=== PATIENT | male | born 1985 | race Hispanic/Latino ===

== ENCOUNTER 2019-06-03 14:54 | Emergency (ER) | payer OTHER ==
[2019-06-03] MEDS ORDERED: Take Home: Doxycycline 100 MG Tab, 4 Tab Pack PO ONE (16:04)
--- NOTE | 2019-06-03 16:21 | CR ---
[id number] RAD/RAD Chest PA And Lateral EXAM: RAD Chest PA And Lateral INDICATION: COUGH, CONGESTION. COMPARISON: None. DISCUSSION: PA lateral view demonstrates parenchymal opacification anteriorly abutting the diaphragm. This is not definitely seen on the PA view. Linear parenchymal opacification projecting over the left lung base does not correlate with findings on lateral view. Despite this, correlation signs for signs of infection as this could represent a right middle lobe or lingular pneumonia. Lungs are otherwise clear. Heart is normal in size. IMPRESSION: Parenchymal opacification on lateral view possibly represent either a lingular or right middle lobe pneumonia/atelectasis. Monty Spangler MD 06/03/19 2234 Thank you for allowing us to participate in the care of your patient.
--- NOTE | 2019-06-04 00:34 | EDM.PDOC ---
ED HPI GENERAL MEDICAL PROBLEM - General Chief Complaint: Respiratory Problem Stated Complaint: COUGH Time Seen by Provider: 06/03/19 15:00 Source of Information: Reports: Patient History Limitations: Reports: No Limitations - History of Present Illness INITIAL COMMENTS - FREE TEXT/NARRATIVE: Pt. presents to ER with complaints of cough and low grade fever that started today. He states that he is mildly short of breath. He states that his has been ill recently as well. 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 Denies any travel outside of the country. Denies any nausea, vomiting, or diarrhea. No chest pain. No jaw, arm or neck pain. He states that his cough is productive occasionally of yellowish sputum. Onset Date: 06/03/19 Location: Reports: Chest, Generalized Severity: Moderate Associated Symptoms: Reports: Cough, cough w sputum, Fever/Chills, Shortness of Breath. Denies: Confusion, Chest Pain, Diaphoresis, Headaches, Loss of Appetite , Malaise, Nausea/Vomiting, Rash, Seizure, Syncope, Weakness - Related Data Allergies Allergy/AdvReac Type Severity Reaction Status Date / Time No Known Allergies Allergy Verified 06/03/19 15:27 Home Meds: Home Meds ARIPiprazole [Aripiprazole] 5 mg PO DAILY 06/03/19 [History] OXcarbazepine [Trileptal] 600 mg PO BID 06/03/19 [History] Omeprazole Magnesium [Prilosec Otc] 20 mg PO DAILY 06/03/19 [History] guanFACINE HCl [Guanfacine HCl ER] 2 mg PO DAILY 06/03/19 [History] Past Medical History - Past Health History Medical/Surgical History: Denies Medical/Surgical History Psychiatric History: Reports: Bipolar Social & Family History - Tobacco Use Smoking Status *Q: Never Smoker ED ROS GENERAL - Review of Systems Review Of Systems: See Below Constitutional: Reports: No Symptoms HEENT: Reports: No Symptoms Respiratory: Reports: Shortness of Breath, Cough, Sputum Cardiovascular: Reports: No Symptoms Endocrine: Reports: No Symptoms GI/Abdominal: Reports: No Symptoms : Reports: No Symptoms Musculoskeletal: Reports: No Symptoms Skin: Reports: No Symptoms Neurological: Reports: No Symptoms Psychiatric: Reports: No Symptoms Hematologic/Lymphatic: Reports: No Symptoms Immunologic: Reports: No Symptoms ED EXAM, GENERAL - Physical Exam Exam: See Below Exam Limited By: No Limitations General Appearance: Alert, WD/WN, No Apparent Distress Eye Exam: Bilateral Eye: EOMI, Normal Fundi, Normal Inspection, PERRL Ears: Normal External Exam, Normal Canal, Hearing Grossly Normal, Normal TMs Ear Exam: Bilateral Ear: Auricle Normal, Canal Normal, TM normal Nose: Normal Inspection, Normal Mucosa, No Blood Throat/Mouth: Normal Inspection, Normal Lips, Normal Teeth, Normal Oropharynx, Normal Voice, No Airway Compromise Head: Atraumatic, Normocephalic Neck: Normal Inspection, Supple, Non-Tender Respiratory/Chest: No Respiratory Distress, Decreased Breath Sounds (R lower lung field) Cardiovascular: Normal Peripheral Pulses, Regular Rate, Rhythm, No JVD, No Rub Peripheral Pulses: 4+: Radial (L) GI/Abdominal: Normal Bowel Sounds, Soft, Non-Tender, No Distention, No Mass (Male) Exam: Deferred Rectal (Males) Exam: Deferred Back Exam: Normal Inspection, Full Range of Motion Extremities: Normal Inspection, Normal Range of Motion, Non-Tender, No Pedal Edema, Normal Capillary Refill Neurological: Alert, Oriented, CN II-XII Intact, Normal Reflexes, No Motor/ Sensory Deficits Course - Vital Signs Last Recorded V/S: Last Vital Signs Temp 35.7 C L 06/03/19 14:55 Pulse 100 06/03/19 14:55 Resp 16 06/03/19 14:55 BP 149/99 H 06/03/19 14:55 Pulse Ox 97 06/03/19 14:55 - Orders/Labs/Meds Orders: Active Orders 24 hr Category Date Time Status CULTURE STREP A CONFIRMATION [] Stat Lab 06/03/19 15:20 Results STREP SCRN A RAPID W CULT CONF [] Stat Lab 06/03/19 15:20 Results Meds: Medications Discontinued Medications Generic Name Dose Route Start Last Admin Trade Name Freq PRN Reason Stop Dose Admin Doxycycline Monohydrate 1 packet 06/03/19 16:04 06/03/19 16:13 Take Home: Doxycycline 100 Mg, 4 Tab Pack PO 06/03/19 16:05 1 packet ONETIME ONE Administration - Radiology Interpretation Free Text/Narrative:: R middle lobe infiltrate noted on CXR Departure - Departure Time of Disposition: 16:15 Disposition: Home, Self-Care 01 Clinical Impression: CAP (community acquired pneumonia) - Discharge Information Instructions: Community-Acquired Pneumonia, Adult, [id number] Referrals: Lenka Squires ASSISTANT SPEECH LANGUAGE PATHOLOGIST [Primary Care Provider] - Forms: ED Department Discharge Additional Instructions: Doxycycline 100mg 1 twice daily for 7 days Tylenol and ibuprofen for fever/discomfort Drink plenty of fluids Return to ER if trouble breathing. Off work until you are asymptomatic/24 hours after last fever. Sepsis Event Note - Evaluation Sepsis Screening Result: No Definite Risk - Focused Exam Vital Signs: Vital Signs Temp Pulse Resp BP Pulse Ox 06/03/19 14:55 35.7 C L 100 16 149/99 H 97 Date Exam was Performed: 06/04/19 Time Exam was Performed: 00:53 - My Orders Last 24 Hours: My Active Orders 06/03/19 15:20 CULTURE STREP A CONFIRMATION [RM] Stat STREP SCRN A RAPID W CULT CONF [] Stat - Assessment/Plan Last 24 Hours: My Active Orders 06/03/19 15:20 CULTURE STREP A CONFIRMATION [RM] Stat STREP SCRN A RAPID W CULT CONF [] Stat Plan: Doxycycline 100mg 1 twice daily for 7 days Tylenol and ibuprofen for fever/discomfort Drink plenty of fluids Return to ER if trouble breathing. Off work until you are asymptomatic/24 hours after last fever.
== END 2019-06-03 16:15 | disposition home or self-care (01) ==
LOC: VM.ED 14:54
DX: J18.9 Pneumonia, unspecified organism (principal); F31.9 Bipolar disorder, unspecified; Z79.899 Other long term (current) drug therapy
CPT/HCPCS: 71046; 87081; 87804; 87804-59; 87880-QW; 99283-25; A9270-GY

== ENCOUNTER 2020-10-26 19:13 | Emergency (ER) | payer OTHER ==
[2020-10-26] MEDS ORDERED: Sodium Chloride 0.9% 10 ML Syringe FLUSH PRN (19:30)
[2020-10-26] MEDS ORDERED: cefTRIAXone 1 GM Vial IVPUSH ONE (19:33)
--- NOTE | 2020-10-26 19:40 | EDM.PDOC ---
ED HPI GENERAL MEDICAL PROBLEM - General Chief Complaint: Respiratory Problem Stated Complaint: CHEST PAIN AND SOB Time Seen by Provider: 10/26/20 19:15 Source of Information: Reports: Patient History Limitations: Reports: No Limitations - History of Present Illness INITIAL COMMENTS - FREE TEXT/NARRATIVE: Patient comes in the emergency department with concerns of worsening respiratory illness. Patient states that he was in the clinic earlier this week and was started on a Z-Srini for an ear infection and chest congestion. He states over the last 48 to 72 hours he has increase in body aches, fevers, generalized fatigue, increased coughing, and short this of breath with activity. He also states that he gets chest discomfort when he is coughing. He states that is getting worse the more he coughs. He also had a Covid test completed on which was negative however he states that his symptoms had just started that day. Patient states he can think denies of any chest pain at rest, nausea, vomiting, blurred vision, gastrointestinal issues, or peripheral edema. Onset: Gradual Quality: Reports: Other Severity: Moderate Improves with: Reports: Other Worsens with: Reports: Other (coughing ), Movement Associated Symptoms: Reports: No Other Symptoms Chest Pain Score (Numeric/FACES): 8 - Related Data Allergies Allergy/AdvReac Type Severity Reaction Status Date / Time No Known Allergies Allergy Verified 06/03/19 15:27 Home Meds: Home Meds ARIPiprazole [Aripiprazole] 5 mg PO DAILY 06/03/19 [History] OXcarbazepine [Trileptal] 600 mg PO BID 06/03/19 [History] Omeprazole Magnesium [Prilosec Otc] 20 mg PO DAILY 06/03/19 [History] guanFACINE HCl [Guanfacine HCl ER] 2 mg PO DAILY 06/03/19 [History] Past Medical History - Past Health History Medical/Surgical History: Denies Medical/Surgical History Psychiatric History: Reports: Bipolar ED ROS GENERAL - Review of Systems Review Of Systems: Comprehensive ROS is negative, except as noted in HPI. Constitutional: Reports: Fever, Chills, Malaise, Fatigue, Decreased Appetite HEENT: Reports: No Symptoms Respiratory: Reports: Shortness of Breath, Pleuritic Chest Pain, Cough, Sputum Cardiovascular: Reports: No Symptoms Endocrine: Reports: No Symptoms GI/Abdominal: Reports: No Symptoms : Reports: No Symptoms Musculoskeletal: Reports: No Symptoms Skin: Reports: No Symptoms Neurological: Reports: No Symptoms Psychiatric: Reports: No Symptoms Hematologic/Lymphatic: Reports: No Symptoms Immunologic: Reports: No Symptoms ED EXAM, GENERAL - Physical Exam Exam: See Below Exam Limited By: No Limitations General Appearance: Alert, WD/WN, No Apparent Distress Head: Atraumatic, Normocephalic Neck: Normal Inspection, Supple, Non-Tender Respiratory/Chest: Decreased Breath Sounds Cardiovascular: Normal Peripheral Pulses, Regular Rate, Rhythm, No Edema, Tach ycardia Back Exam: Normal Inspection, Full Range of Motion Extremities: Normal Inspection, Normal Range of Motion, Non-Tender, Normal Capillary Refill Neurological: Alert, Oriented, Normal Cognition, Normal Gait Psychiatric: Normal Affect, Normal Mood Skin Exam: Warm, Dry, Intact, Normal Color Course - Vital Signs Last Recorded V/S: Last Vital Signs Temp 37.7 C 10/26/20 19:20 Pulse 118 H 10/26/20 19:20 Resp 22 H 10/26/20 19:20 BP 150/84 H 10/26/20 19:20 Pulse Ox 93 L 10/26/20 19:20 - Orders/Labs/Meds Orders: Active Orders 24 hr Category Date Time Status EKG Documentation Completion [RC] STAT Care 10/26/20 19:30 Active CULTURE BLOOD [BC] Stat Lab 10/26/20 19:43 Received CULTURE BLOOD [BC] Stat Lab 10/26/20 20:02 Received Sodium Chloride 0.9% [Saline Flush] Med 10/26/20 19:30 Active 10 ml FLUSH ASDIRECTED PRN Blood Culture x2 Reflex Set [OM.PC] Stat Oth 10/26/20 19:38 Ordered Peripheral IV Insertion Adult [OM.PC] Stat Oth 10/26/20 19:30 Ordered Medication Orders Sodium Chloride (Sodium Chloride 0.9% 10 Ml Syringe) 10 ml FLUSH ASDIRECTED PRN PRN Reason: Keep Vein Open Labs: Laboratory Tests 10/26/20 10/26/20 10/26/20 Range/Units 19:43 19:43 19:43 WBC 9.7 (4.0-10.0) x10^3/uL RBC 4.93 (4.5-6.0) x10^6/uL Hgb 16.3 (14.0-18.0) g/dL Hct 45.4 (40.0-52.0) % MCV 92.1 (78.0-93.0) fL MCH 33.1 H (26.0-32.0) pg MCHC 35.9 (32.0-36.0) g/dL RDW Coeff of [place] 12.2 (10.0-15.0) % Plt Count 213 (130-400) x10^3/uL Neut % (Auto) 81.7 H (50.0-80.0) % Lymph % (Auto) 8.2 L (25.0-50.0) % [place] % (Auto) 9.5 (2.0-11.0) % Eos % (Auto) 0.4 (0.0-4.0) % Baso % (Auto) 0.2 (0.2-1.2) % Sodium 137 (136-145) mmol/L Potassium 3.4 L (3.5-5.1) mmol/L Chloride 101 (98-107) mmol/L Carbon Dioxide 27 (21-32) mmol/L Anion Gap 12.4 (5-15) mmol/L BUN 14 (7-18) mg/dL Creatinine 1.0 (0.70-1.30) mg/dL Est Cr Clr Drug Dosing TNP Estimated GFR (MDRD) > 60 Glucose 121 H (70-99) mg/dL Lactic Acid 1.1 (0.4-2.0) mmol/L Calcium 8.6 (8.5-10.1) mg/dL Corrected Calcium 8.5 (8.5-10.1) mg/dL Total Bilirubin 0.5 (0.2-1.0) mg/dL AST 25 (15-37) U/L ALT 64 H (16-63) U/L Alkaline Phosphatase 101 (46-116) U/L Troponin I High Sens < 4 (<=76) ng/L Total Protein 7.7 (6.4-8.2) g/dL Albumin 4.1 (3.4-5.0) g/dL Globulin 3.6 Albumin/Globulin Ratio 1.14 Influenza Type A RNA (NEGATIVE) Influenza Type B RNA (NEGATIVE) SARS-CoV-2 RNA (RACQUEL) (NEGATIVE) 10/26/20 Range/Units 19:45 WBC (4.0-10.0) x10^3/uL RBC (4.5-6.0) x10^6/uL Hgb (14.0-18.0) g/dL Hct (40.0-52.0) % MCV (78.0-93.0) fL MCH (26.0-32.0) pg MCHC (32.0-36.0) g/dL RDW Coeff of [place] (10.0-15.0) % Plt Count (130-400) x10^3/uL Neut % (Auto) (50.0-80.0) % Lymph % (Auto) (25.0-50.0) % [place] % (Auto) (2.0-11.0) % Eos % (Auto) (0.0-4.0) % Baso % (Auto) (0.2-1.2) % Sodium (136-145) mmol/L Potassium (3.5-5.1) mmol/L Chloride (98-107) mmol/L Carbon Dioxide (21-32) mmol/L Anion Gap (5-15) mmol/L BUN (7-18) mg/dL Creatinine (0.70-1.30) mg/dL Est Cr Clr Drug Dosing Estimated GFR (MDRD) Glucose (70-99) mg/dL Lactic Acid (0.4-2.0) mmol/L Calcium (8.5-10.1) mg/dL Corrected Calcium (8.5-10.1) mg/dL Total Bilirubin (0.2-1.0) mg/dL AST (15-37) U/L ALT (16-63) U/L Alkaline Phosphatase (46-116) U/L Troponin I High Sens (<=76) ng/L Total Protein (6.4-8.2) g/dL Albumin (3.4-5.0) g/dL Globulin Albumin/Globulin Ratio Influenza Type A RNA Negative (NEGATIVE) Influenza Type B RNA Negative (NEGATIVE) SARS-CoV-2 RNA (RACQUEL) Negative (NEGATIVE) Meds: Medications Generic Name Dose Route Start Last Admin Trade Name Freq PRN Reason Stop Dose Admin Sodium Chloride 10 ml 10/26/20 19:30 Sodium Chloride 0.9% 10 Ml Syringe FLUSH ASDIRECTED PRN Keep Vein Open Discontinued Medications Generic Name Dose Route Start Last Admin Trade Name Freq PRN Reason Stop Dose Admin Ceftriaxone Sodium 1 gm 10/26/20 19:33 Ceftriaxone 1 Gm Vial IVPUSH 10/26/20 19:34 ONETIME ONE Departure - Departure Time of Disposition: 21:00 Disposition: Home, Self-Care 01 Condition: Good Clinical Impression: Acute bronchitis - Discharge Information *PRESCRIPTION DRUG MONITORING PROGRAM REVIEWED*: Not Applicable *COPY OF PRESCRIPTION DRUG MONITORING REPORT IN PATIENT CHAN: Not Applicable Instructions: Acute Bronchitis, Adult, [id number] Referrals: Gumaro Hernandez NP [Primary Care Provider] - Forms: ED Department Discharge Additional Instructions: 1. rest 2. increase your water intake 3. Take all antibiotics as prescribed even if feeling better 4. Take a probiotic while on antibiotics to help promote healthy GI motility 5. Activity and diet as tolerated 6. Can use Ibuprofen and tylenol for any fever or discomfort 7. Follow up with your PCP or return if symptoms progress or worsen 8. Education provided to you regarding your illness, probiotics, antibiotic prescribed 9. Call with any questions or concerns Sepsis Event Note (ED) - Focused Exam Vital Signs: Vital Signs Temp Pulse Resp BP Pulse Ox 10/26/20 19:20 37.7 C 118 H 22 H 150/84 H 93 L - My Orders Last 24 Hours: My Active Orders 10/26/20 19:30 EKG Documentation Completion [RC] STAT Sodium Chloride 0.9% [Saline Flush] 10 ml FLUSH ASDIRECTED PRN Peripheral IV Insertion Adult [OM.PC] Stat 10/26/20 19:38 Blood Culture x2 Reflex Set [OM.PC] Stat 10/26/20 19:43 CULTURE BLOOD [BC] Stat 10/26/20 20:02 CULTURE BLOOD [BC] Stat - Assessment/Plan Last 24 Hours: My Active Orders 10/26/20 19:30 EKG Documentation Completion [RC] STAT Sodium Chloride 0.9% [Saline Flush] 10 ml FLUSH ASDIRECTED PRN Peripheral IV Insertion Adult [OM.PC] Stat 10/26/20 19:38 Blood Culture x2 Reflex Set [OM.PC] Stat 10/26/20 19:43 CULTURE BLOOD [BC] Stat 10/26/20 20:02 CULTURE BLOOD [BC] Stat Assessment:: 1. acute bronchitis 2. cough 3. congestion Plan: 1. Sepsis protocol initiated and followed 2. Labs completed in the ER. Results reviewed with the patient 3. Blood cultures completed 4. IV initiated in the emergency department 5. EKG completed in ER- sinus 6. Rocephin 1gm given 7. Covid/Influenza- negative 8. Patient will be transferred to a higher level of care needing further medical and/or surgical interventions 9. Patient and nursing staff was updated regarding the plan of care 10. Patient and family are agreeable to the above plan of care 11. All questions and concerns were addressed with the patient and family prior to discharge
[2020-10-26 20:05] LABS: CHLORIDE,CL 101 mmol/L (98-107); SODIUM,NA 137 mmol/L (136-145)
[2020-10-26 20:09] LABS: ANION GAP 12.4 mmol/L (5-15)
[2020-10-26 20:34] LABS: CORONAVIRUS COVID-19 NAA NEGATIVE (NEGATIVE)
--- NOTE | 2020-10-26 20:55 | CR ---
[id number] RAD/RAD Chest PA or AP 1V EXAM: SINGLE VIEW CHEST. INDICATION: COUGH COMPARISON: CORRELATION IS MADE WITH JUNE 03, 2019 FINDINGS: The lungs are clear The cardiac silhouette is stable IMPRESSION: NO PNEUMONIA OR EDEMA Hudson Weber MD 10/26/202052 Thank you for allowing us to participate in the care of your patient.
[2020-10-26] MEDS ORDERED: cefTRIAXone 1 GM, Lidocaine 1% 2.1 ML IM ONE ×2 (21:08)
== END 2020-10-26 21:25 | disposition home or self-care (01) ==
LOC: VM.ED 19:13
DX: J20.9 Acute bronchitis, unspecified (principal); Z79.899 Other long term (current) drug therapy; Z20.822 Contact with and (suspected) exposure to COVID-19
CPT/HCPCS: 0240U; 36415; 71045; 80053; 83605; 84484; 85025; 87040; 93005; 96372; 99283; 99285-25; J0696